=== PATIENT | male | born 1985 | race Caucasian/White ===

== ENCOUNTER 2025-03-30 08:02 | Emergency (ER) | payer OTHER, SELFPAY ==
--- NOTE | 2025-03-30 08:03 | ED_ITS ---
HPI - General Adult General Chief complaint: Upper Respiratory Infection Stated complaint: Sore throat Time Seen by Provider: 03/30/25 08:03 Source: patient Mode of arrival: ambulatory Limitations: no limitations History of Present Illness HPI narrative: patient is a 39-year-old male presenting with complaint of sore throat. Additional symptoms reported include body aches, fever with T-max 102? last night, chills, sweats. Symptoms began yesterday. Family members with similar symptoms, daughter evaluated here last week and tested negative for all point of care testing. Treatment initiated prior to arrival include ibuprofen. No additional complaints. Related Data Home Medications ?Medication ?Instructions ?Recorded ?Confirmed ?Last Taken ?Type No Home Medications 03/30/25 03/30/25 U nknown History Allergies Allergy/AdvReac Type Severity Reaction Status Date / Time No Known Allergies Allergy Mild Verified 03/30/25 08:03 Review of Systems Review of Systems: CONSTITUTIONAL: reports body aches, fever, chills, sweats. EYES: Denies visual changes, redness, or discharge. ENT: Reports sore throat, Denies rhinorrhea, congestion or otalgia. CARDIOVASCULAR: Denies chest pain, palpitations, or edema. RESPIRATORY: Denies cough or dyspnea. GASTROINTESTINAL: Denies abdominal pain, nausea, vomiting, or diarrhea. GENITOURINARY: Denies dysuria or hematuria. SKIN: Denies rash, itching, or wounds. MUSCULOSKELETAL: Denies back pain, joint pain, or myalgia. NEUROLOGIC: Denies headache, numbness, tingling, or weakness. PSYCH: Denies depression or anxiety. All systems reviewed & are unremarkable except as noted in HPI and below (HPI) Exam Narrative: GENERAL: Well-appearing, well-nourished, and in no acute distress. HEAD: Normocephalic, atraumatic. EYES: EOMI. No redness or drainage. Conjunctivae normal. ENT: Mucous membranes pink and moist. Nares clear. No rhinorrhea. TMs normal bilaterally. Throat normal. Uvula midline. NECK: Normal AROM. Supple. No lymphadenopathy. CHEST: No respiratory distress. Clear to auscultation. HEART: Regular rate and rhythm. No murmur appreciated. Normal peripheral pulses. ABDOMEN: Soft, nontender, nondistended, normal active bowel sounds. MUSCULOSKELETAL: No bony tenderness. EXTREMITIES: Normal range of motion. No edema. SKIN: Warm, dry, no rash. Capillary refill normal. Normal skin turgor. NEURO: No focal deficits. Alert and oriented x3. Gait steady. PSYCH: Normal affect. No signs of depression or anxiety. Course Course Level of Care: Express Care Visit Vital Signs Vital signs: Vital Signs Temperature 97.8 F 03/30/25 08:19 Pulse Rate 72 03/30/25 08:19 Respiratory Rate 18 03/30/25 08:19 Blood Pressure 112/61 03/30/25 08:19 Pulse Oximetry 100 03/30/25 08:19 Oxygen Delivery Room Air 03/30/25 08:19 Temperature 97.8 F 03/30/25 08:19 Pulse Rate 72 03/30/25 08:19 Respiratory Rate 18 03/30/25 08:19 Blood Pressure 112/61 03/30/25 08:19 Pulse Oximetry 100 03/30/25 08:19 Oxygen Delivery Room Air 03/30/25 08:19 Medical Decision Making Vital Signs Vital Signs: Vital Signs Temperature 97.8 F 03/30/25 08:19 Pulse Rate 72 03/30/25 08:19 Respiratory Rate 18 03/30/25 08:19 Blood Pressure 112/61 03/30/25 08:19 Pulse Oximetry 100 03/30/25 08:19 Oxygen Delivery Room Air 03/30/25 08:19 Temperature 97.8 F 03/30/25 08:19 Pulse Rate 72 03/30/25 08:19 Respiratory Rate 18 03/30/25 08:19 Blood Pressure 112/61 03/30/25 08:19 Pulse Oximetry 100 03/30/25 08:19 Oxygen Delivery Room Air 03/30/25 08:19 Lab Data Labs: Lab Results 03/30/25 Range/Units 08:31 POC Influenza A Ag Negative (Negative) POC Influenza B Ag Negative (Negative) POC SARS CoV-2 Ag Negative (Negative) POC Grp A Strep Screen Negative (Negative) Discharge Plan Discharge Clinical Impression: Upper respiratory infection Qualifiers: URI type: acute nasopharyngitis (common cold) Qualified Code(s): J00 - Acute nasopharyngitis [common cold] Pharyngitis Qualifiers: Pharyngitis/tonsillitis etiology: unspecified etiology Qualified Code(s): J02.9 - Acute pharyngitis, unspecified Patient Disposition: Home Condition: Stable Instructions: Antibiotic Form Additional Instructions: Go straight to ER should your symptoms become worse or should any new symptoms develop Patient Language: Icelandic Prescriptions: No Action No Home Medications Follow-up/Referrals: Triston,Raoul Schulte MD [Primary Care Provider] - 03/31/25 Stand Alone Forms: Work/School Release IP Time of Disposition: 08:37
[2025-03-30 08:19] VITALS: BP 112/61; PULSE 72; RESP 18; TEMP 36.6; O2SAT 100
--- OUTSIDE RECORDS SUMMARY | 2025-03-30 08:22 | XMS_ITS | Clinical Summary ---
Author Organization [facility] Address [address] [place] [address] Care Team Providers Care Printing Worker Supervisor Name Role Phone Nevaeh Leahy MD Primary Care Provider [phone] Source Comments [facility] [place] [facility],non-owned Affiliates and Associated Physician Practices is amultiple site organization consisting of ambulatory clinics and hospital sitesin [place], [place], [place] and [place]. This disclosure is being madepursuant to the Care Everywhere program and may not contain all information available regarding this patient. Last updated 18.[facility] Social History Tobacco Use Types Packs/Day Years Used Date Smoking Tobacco: Never Assessed Sex and Gender Information Value Date Recorded Sex Assigned at Not on file Legal Sex Male 11:56 AM GUARDIAN AD LITEM Gender Identity Not on file Sexual Orientation Not on file Plan of Treatment Health Maintenance Due Date Last Done Comments HIV SCREENING 10/31/2002 HEPATITIS C SCREENING 10/27/2005 DTAP/TDAP/TD VACCINES (1 - Tdap) 10/31/2006 HEPATITIS B VACCINE (1 of 3 - 19+ 3-dose series) 10/31/2006 HPV VACCINE (1 - 3-dose SCDM series) 10/31/2014 DEPRESSION SCREENING 07/21/2024 COVID-19 VACCINE ( - 2023-2 5 season) 2025 INFLUENZA VACCINE (#1) 2025 ZOSTER VACCINE (1 of 2) 10/31/2037 HIB VACCINE Aged Out No longer eligi ble based on patient's age to complete this topic MENINGOCOCCAL (Group B) VACC INE SHARED DECISION-MAKING Aged Out No longer eligibl e based on patient's age to complete this topic MENINGOCOCCAL GROUPS A/C/Y/W VACCINE Aged Out No longer eligible b ased on patient's age to complete this topic PNEUMOCOCCAL VACCINE Aged Out No long er eligible based on patient's age to complete this topic Insurance [employer] Care Teams Printing Worker Supervisor Relationship Specialty Start Date End Date Nevaeh Leahy MD PCP - General Pediatrics 08/13/17
--- OUTSIDE RECORDS SUMMARY | 2025-03-30 08:22 | XMS_ITS | Clinical Summary ---
Author Organization [facility] Address [address] [place] [address] Care Team Providers Care Laborer Sawmill Name Role Phone No, Physician Primary Care Provider [phone] Allergies No known active allergies Medications No known medications Active Problems Problem Noted Date Diagnosed Date Other injury of other muscle (s) and tendon(s) of posterior muscle group at lower leg level, right leg, initial encounter 03/18/2024 Closed nondisplaced fracture of fifth right meta tarsal bone 02/19/2024 Hearing loss 02/02/2013 Ankle sprain 01/19/2013 Immunizations Immunization Administration Dates Next Due Influenza, Quadrivalent, Spl it, Preservative Free, Intramuscular 06/03/2022,04/11/2017 Tdap 02/12/2017 Surgical History Surgery Date Site/Laterality Comments HAND SURGERY 07/21/2007 - 07/20/2008 Fracture Repair Medical History Medical History Date Comments Closed nondisplaced fracture of fifth right meta tarsal bone Other injury of other muscle (s) and tendon(s) of posterior muscle group at lower leg level, right leg, initial encounter Social History Tobacco Use Types Packs/Day Years Used Date Smoking Tobacco: Some Days Cigarettes Smokeless Tobacco: Never Tobacco Cessation:Ready to Q uit: Not Asked; Counseling Given: Not Answered AUDIT-C Answer Date Recorded Q1: How often do you have a drink containing alc ohol? 2-3 times a week 04/14/2024 Q2: How many drinks containi ng alcohol do you have on a typical day when you are drinking? 1 or 2 04/14/2024 Q3: How often do you have si x or more drinks on one occasion? Never 04/14/2024 Personal Safety Answer Date Recorded Have you ever been in or are you currently in a harmful physical or emotional relationship or is someone making you feel afraid or unsafe? Denies 04/23/2024 Sex and Gender Information Value Date Recorded Sex Assigned at Not on file Legal Sex Male 6:47 PM AUDITOR APPRAISER Gender Identity Not on file Sexual Orientation Not on file Obstetrics History Last Filed Vital Signs Vital Sign Reading Time Taken Comments Blood Pressure 118/70 07/15/2024 1:12 PM AUDITOR APPRAISER Pulse 58 06/03/2024 9:04 AM AUDITOR APPRAISER Temperature 36.1 C (97 F) 04/23/2024 12:14 PM CDT Respiratory Rate 13 04/23/2024 1:00 PM CDT Oxygen Saturation 99% 06/03/2024 9:04 AM AUDITOR APPRAISER Inhaled Oxygen Concentration - - Weight 93 kg (205 lb) 07/15/2024 1:12 PM AUDITOR APPRAISER Height 182.9 cm (6') 07/15/2024 1:12 PM AUDITOR APPRAISER Body Mass Index 27.8 07/15/2024 1:12 PM AUDITOR APPRAISER Plan of Treatment Health Maintenance Due Date Last Done Comments Depression Screening 1987 Hepatitis C Screening 1987 Varicella Vaccines (1 of 2 - 13+ 2-dose series) 10/31/2000 Hepatitis B Screening 10/31/2005 Regular Well Visit/Exam 18-64 10/31/2005 Pneumococcal vaccine <65 (1 of 2 - PCV) 10/31/2006 HPV Vaccines (1 - 3-dose SCDM series) 10/31/2014 Covid-19 Vaccine ( - season) 03/21/202408/2020, 08/17/2020 Influenza Vaccine (#1) 2025 06/03/2022, 2016 DTaP/Tdap/Td Vaccine (2 - Td or Tdap) 02/12/2027 Medical Devices Implanted Type Area Supervisor Communications And Signals Device Identifier Shelf Expiration Date Model / Serial / Lot [employer] Arthrex Dx Fibertak Needle Eucl[place] Suture Sterile Latex Free Ar-[id number] - [id number] Implanted:Qty: 1 on 04/23/2024 by Kelsea Ferrer DPM at [facility] Right: Foot [employer] [id number] 03/20/2028 AR-8990ST / / [id number] [employer] Arthrex Dx Fibertak Needle Euclid Suture Sterile Latex Free Ar-8990st - [id number] Implanted:Qty: 1 on 04/23/2024 by Kelsea Ferrer DPM at [facility] Right: Foot [employer] [id number] 11/18/2027 AR-[id number] / / [id number] Insurance [facility] OPEN ACCESS [facility] OPEN ACCESS Care Teams Laborer Sawmill Relationship Specialty Start Date End Date No, Physician PCP - General 01/05/24
--- OUTSIDE RECORDS SUMMARY | 2025-03-30 08:22 | XMS_ITS | Clinical Summary ---
Author Organization [facility] Address [address] [place] [id number] Care Team Providers Care Infant Teacher Name Role Phone Raoul Goldstein MD Primary Care Provider [phone] Allergies No known active allergies Medications sertraline (ZOLOFT) 50 MG tabletIndicatio ns:Anxiety Take 1 tablet (50 mg total) by mouth daily. 90 tablet 1 2 03/17/20 25 Discontinued Active Problems Problem Noted Date Diagnosed Date Hearing loss 02/02/2013 Ankle sprain 01/19/2013 Resolved Problems Problem Noted Date Diagnosed Date Resolved Date Routine general medical exam ination at a health care facility 02/10/2012 06/10/2022 Encounters Date Type Department Care Team Description 03/17/2025 4:00 PM CDT Office Visit [facility] Family & Internal Medicine [address] [address] Raoul Goldstein MD Physical 03/17/2025 Travel from Last 3 Months Immunizations Immunization Administration Dates Next Due Fluzone 6 Months+ Quad (0.5 mL Prefilled Syringe ) 06/03/2022 Influenza Adult (Generic) 06/03/2022,04/11/2017 Tdap (Generic) 02/12/2017 Family History Medical History Relation Comments Heart Disease Father Hypertension Father Relation Status Comments Father Alive Mother Alive Social History Tobacco Use Types Packs/Day Years Used Date Smoking Tobacco: Some Days Cigarettes Smokeless Tobacco: Never Tobacco Cessation:Ready to Q uit: No; Counseling Given: Yes Alcohol Use Standard Drinks/Week Comments Yes 0 (1 standard drink = 0.6 oz pur e alcohol) occasionly PHQ-2 Answer Date Recorded Patient Health Questionnaire-2 Score 0 03/17/2025 Sex and Gender Information Value Date Recorded Sex Assigned at Male 03/03/2025 9:46 AM CDT Legal Sex Male 5:30 PM CDT Gender Identity Male 03/17/2025 3:01 PM CDT Sexual Orientation Not on file Last Filed Vital Signs Vital Sign Reading Time Taken Comments Blood Pressure 104/74 03/17/2025 3:54 PM CDT Pulse 62 03/17/2025 3:54 PM CDT Temperature 36.5 C (97.7 F) 03/17/2025 3:54 PM CDT Respiratory Rate 18 03/17/2025 3:54 PM CDT Oxygen Saturation 100% 03/17/2025 3:54 PM CDT Inhaled Oxygen Concentration - - Weight 98 kg (216 lb) 03/17/2025 3:54 PM CDT Height 180.3 cm (5' 11) 03/17/2025 3:54 PM CDT Body Mass Index 30.13 03/17/2025 3:54 PM CDT Plan of Treatment Health Maintenance Due Date Last Done Comments Hepatitis C 10/31/2005 Hepatitis B Vaccines (1 of 3 - 19+ 3-dose series) 10/31/2006 Pneumococcal Vaccine: Pediatrics (0 to 5 Years) and At-Risk Patients (6 to 49 Years) (1 of 2 - PCV) 10/31/2006 HPV Vaccines (1 - 3-dose SCD M series) 10/31/2014 COVID-19 Vaccine (2024-2 6 season) 2025 09/19/2020, 08/17/2020 Annual Physical 03/17/2026 03/17/2025, 06/03/2022 DTaP, Tdap and Td Vaccines ( 2 - Td or Tdap) 02/12/2027 02/12/2017 PHQ-2 (Physician [place]) Completed 03/17/2025 Meningococcal B Vaccine Aged Out No l onger eligible based on patient's age to complete this topic Meningococcal Vaccine Aged Out No shaila tamiko eligible based on patient's age to complete this topic RSV Immunizations Under 20 Months Aged Out No longer eligible b ased on patient's age to complete this topic Insurance [employer] Care Teams Infant Teacher Relationship Specialty [place] [id number] [place] [address] PCP - General FAMILY PRACTICE 05/07/22
[2025-03-30 08:33] LABS: EDCOVIDSCREEN Negative (Negative); EDINFLUASCREEN Negative (Negative); EDINFLUBSCREEN Negative (Negative); EDSTREPNEGPOS1 Negative (Negative)
== END 2025-03-30 08:39 | disposition home or self-care (01) ==
PROVIDERS: Emergency Provider Registered Nurse; PCP Family Medicine
DX: J06.9 Acute upper respiratory infection, unspecified (principal); J02.9 Acute pharyngitis, unspecified; Z20.822 Contact with and (suspected) exposure to COVID-19
CPT/HCPCS: 87081; 87426; 87804; 87880; 99203; G0463